=== PATIENT | male | born 1980 | race Caucasian/White ===

== ENCOUNTER 2022-05-18 14:24 | Emergency (ER) | payer MEDICAID ==
[2022-05-18 15:00] LABS: BASOPHILS % (AUTO) 0.5 % (0.0-5.0); EOSINOPHILS % (AUTO) 1.5 % (0.0-8.0); HEMATOCRIT 48.8 % (42-54); LYMPHOCYTES % (AUTO) 17.1 % (21.0-51.0); MEAN CORPUSCULAR HEMOGLOBIN 28.5 pg (27.0-33.0); MEAN CORPUSCULAR HGB CONC 33.2 g/dL (32.0-36.0); MEAN CORPUSCULAR VOLUME 85.8 fL (79-99); MONOCYTES % (AUTO) 8.4 % (3.0-13.0); NUCLEATED RED BLOOD CELLS 0.2 % (0.0-0.19); PLATELET COUNT (AUTO) 358 K/uL (130-400); RED BLOOD CELL COUNT(AUTO) 5.69 MIL/uL (4.50-6.20); RED CELL DISTRIBUTION WIDTH 15.8 % (11.0-15.5); WHITE BLOOD COUNT (AUTO) 12.8 K/uL (4.8-10.8)
[2022-05-18 15:10] LABS: CREATININE 1.6 mg/dL (0.5-1.5); POTASSIUM 4.7 mmol/L (3.5-5.1)
[2022-05-18 15:18] LABS: ALBUMIN 4.2 g/dL (3.5-5.0); TOTAL PROTEIN, SERUM 9.1 g/dL (6.0-8.3)
[2022-05-18 15:50] LABS: ALCOHOL, BLOOD < 3 mg/dL (0-10); CREATINE KINASE, TOTAL 161 U/L (21-232); SALICYLATE < 2.8 mg/dL (2.8-20.0)
[2022-05-18 15:51] LABS: ACETAMINOPHEN < 1 mcg/mL (10-29)
[2022-05-18 19:07] LABS: AMPHET/METH SCREEN,URINE POSITIVE (NEGATIVE); BARBITURATE SCREEN, URINE NEGATIVE (NEGATIVE); BENZODIAZEPINES SCREEN,URINE NEGATIVE (NEGATIVE); CANNABINOID SCREEN,URINE POSITIVE (NEGATIVE); COCAINE SCREEN,URINE NEGATIVE (NEGATIVE); OPIATE SCREEN,URINE NEGATIVE (NEGATIVE); PHENCYCLIDINE SCREEN,URINE NEGATIVE (NEGATIVE)
[2022-05-19 09:38] VITALS: BP 145/74
== END 2022-05-19 15:52 ==
LOC: EDH 14:24
DX: R45.851 Suicidal ideations (principal)
CPT/HCPCS: 99285; 71045; 80164; 82550; 84484; 80053; 80305; 85025; 36415; 93005; G0481

== ENCOUNTER 2022-10-28 02:55 | Emergency (ER) | payer MEDICAID ==
[~2022-10-28] VITALS: Ht 180.3 cm; Wt 127.0 kg
[2022-10-28] MEDS ORDERED: LEVETIRACETAM 500 MG/5 ML SD VIAL IV SCH (04:30)
[2022-10-28 04:33] LABS: BASOPHILS % (AUTO) 0.3 % (0.0-5.0); EOSINOPHILS % (AUTO) 0.2 % (0.0-8.0); HEMATOCRIT 42.8 % (42-54); LYMPHOCYTES % (AUTO) 7.7 % (21.0-51.0); MEAN CORPUSCULAR HEMOGLOBIN 28.1 pg (27.0-33.0); MEAN CORPUSCULAR HGB CONC 33.2 g/dL (32.0-36.0); MEAN CORPUSCULAR VOLUME 84.6 fL (79-99); NEUTROPHILS % (AUTO) 87.3 % (40.0-77.0); PLATELET COUNT (AUTO) 339 K/uL (130-400); RED BLOOD CELL COUNT(AUTO) 5.06 MIL/uL (4.50-6.20); RED CELL DISTRIBUTION WIDTH 15.8 % (11.0-15.5); WHITE BLOOD COUNT (AUTO) 15.6 K/uL (4.8-10.8)
[2022-10-28 04:34] LABS: APPEARANCE,URINE CLEAR (CLEAR); BILIRUBIN,URINE NEGATIVE (NEGATIVE); COLOR,URINE YELLOW (YELLOW); GLUCOSE, URINE (UA) NEGATIVE (NEGATIVE); KETONES,URINE 150 mg/dL (NEGATIVE); LEUKOCYTE ESTERASE ,URINE NEGATIVE Leu/uL (NEGATIVE); NITRATE,URINE NEGATIVE (NEGATIVE); OCCULT BLOOD,URINE NEGATIVE (NEGATIVE); PROTEIN,URINE 70 mg/dL (NEGATIVE); UROBILINOGEN,URINE 0.2 mg/dL (0.2-1.0)
[2022-10-28 04:44] LABS: AMPHET/METH SCREEN,URINE POSITIVE (NEGATIVE); BARBITURATE SCREEN, URINE NEGATIVE (NEGATIVE); BENZODIAZEPINES SCREEN,URINE NEGATIVE (NEGATIVE); CANNABINOID SCREEN,URINE POSITIVE (NEGATIVE); COCAINE SCREEN,URINE NEGATIVE (NEGATIVE); OPIATE SCREEN,URINE NEGATIVE (NEGATIVE); PHENCYCLIDINE SCREEN,URINE NEGATIVE (NEGATIVE)
[2022-10-28 04:56] LABS: CARBON DIOXIDE 22 mmol/L (21-32); CHLORIDE 100 mmol/L (101-111); CREATININE 1.1 mg/dL (0.5-1.5); GLOMERULAR FILTR. RATE CALC 85 mL/min (>90); GLUCOSE,RANDOM 160 mg/dL (70-105); POTASSIUM 3.8 mmol/L (3.5-5.1); SODIUM SERUM 135 mmol/L (136-145); UREA NITROGEN, BLOOD 14 mg/dL (7-18)
[2022-10-28 05:05] LABS: ALANINE AMINOTRANSFERASE 41 U/L (12-78); ALBUMIN 3.9 g/dL (3.5-5.0); ASPARTATE AMINOTRANSFERASE 14 U/L (10-37); TOTAL PROTEIN, SERUM 7.5 g/dL (6.0-8.3)
[2022-10-28 05:06] LABS: CREATINE KINASE, TOTAL 100 U/L (21-232); VALPROIC ACID 11 mcg/mL (50-100)
[2022-10-28 05:23] LABS: SALICYLATE < 2.8 mg/dL (2.8-20.0)
[2022-10-28 05:39] LABS: BACTERIA,URINE FEW /HPF (None Seen); MUCUS,URINE MANY LPF (None Seen); SQUAMOUS EPITHELIAL CELL,UR RARE /HPF (0-2)
[2022-10-28] MEDS ORDERED: OLANZAPINE 10MG/ML 1ML VIAL IM SCH (06:00)
[2022-10-28] MEDS ORDERED: PHARMACY COMMUNICATION MISC SCH (07:30)
[2022-10-28] MEDS ORDERED: VALPROIC ACID (AS SODIUM SALT) 500 MG in 0.9%NACL 100ML 100 ML IV SCH (07:30)
[2022-10-28] MEDS ORDERED: DIVA500T2 PO (09:23)
[2022-10-28] MEDS ORDERED: OLAN20TA2 PO (09:23)
[2022-10-28] MEDS ORDERED: ATOR10TA69 PO (09:23)
[2022-10-28] MEDS ORDERED: OLANZAPINE 5 MG TAB PO SCH (09:30)
[2022-10-28] MEDS: DIVALPROEX SODIUM 250 MG TABLET.DR PO SCH (21:36)
[2022-10-28] MEDS: LEVETIRACETAM 500 MG TABLET PO SCH (21:36)
[2022-10-28] MEDS ORDERED: LEVETIRACETAM 250 MG TABLET PO SCH (22:00)
[2022-10-29] MEDS ORDERED: MIRTAZAPINE 15 MG TABLET PO SCH
[2022-10-29] MEDS ORDERED: OLANZAPINE 5 MG TAB PO SCH
[2022-10-29] MEDS: LEVETIRACETAM 500 MG TABLET PO SCH (09:05)
[2022-10-29] MEDS: DIVALPROEX SODIUM 250 MG TABLET.DR PO SCH (09:05)
[2022-10-29 11:06] VITALS: BP 132/72
== END 2022-10-29 11:08 | disposition home or self-care (01) ==
LOC: EDH 02:55
DX: G40.409 Other generalized epilepsy and epileptic syndromes, not intractable, without status epilepticus (principal); F20.9 Schizophrenia, unspecified; Z88.0 Allergy status to penicillin; Z79.899 Other long term (current) drug therapy
CPT/HCPCS: 99285; 96365; 70450; 87635; 96375; 80164; 82550; 80053; 80305; 85025; 81001; 36415; G0481; C9803; J1953; S0166; J3490